=== PATIENT | male | born 1955 | race Caucasian/White ===

== ENCOUNTER → 2020-09-19 | Outpatient (CLI) | payer OTHER | LOC: LABNPT 12:27 | PROVIDERS: ATTEND Internal Medicine | DX: Z01.89 Encounter for other specified special examinations (principal) | CPT/HCPCS: 84145 ==

== ENCOUNTER 2020-09-24 23:06 | Emergency (ER) | payer MEDICARE, OTHER ==
[~2020-09-24] VITALS: Ht 162.5 cm; Wt 60.3 kg
[2020-09-24] MEDS ORDERED: LIDOCAINE 1% INJ 20 ML 20 ML VIAL ONE (23:16)
[2020-09-24] MEDS ORDERED: LIDOCAINE/EPI 2% 1:100,00 (XYLOCAINE) 20 ML VIAL ONE (23:17)
[2020-09-24] MEDS ORDERED: LIDOCAINE/EPI 2% 1:100,00 (XYLOCAINE) 20 ML VIAL INJ ONE (23:30)
[2020-09-24 23:31] LABS: BASOPHILS # (AUTO) 0.1 10^3/uL (0.0-0.1); BASOPHILS % (AUTO) 1 % (0-10); EOSINOPHILS # (AUTO) 0.4 10^3/uL (0.0-0.3); EOSINOPHILS % (AUTO) 4 % (0-10); HEMATOCRIT 48 % (40-54); HEMOGLOBIN 16.5 g/dL (13.3-17.7); LYMPHOCYTES # (AUTO) 1.6 10^3/uL (1.0-4.0); LYMPHOCYTES % (AUTO) 16 % (12-44); MEAN CORPUSCULAR HEMOGLOBIN 31 pg (25-34); MEAN CORPUSCULAR HGB CONC 35 g/dL (32-36); MEAN CORPUSCULAR VOLUME 88 fL (80-99); MONOCYTES # (AUTO) 1.3 10^3/uL (0.0-1.0); MONOCYTES % (AUTO) 13 % (0-12); NEUTROPHILS # (AUTO) 6.6 10^3/uL (1.8-7.8); NEUTROPHILS % (AUTO) 67 % (42-75); PLATELET COUNT 432 10^3/uL (130-400); WHITE BLOOD COUNT 9.9 10^3/uL (4.3-11.0)
[2020-09-24 23:35] LABS: PROTHROMBIN TIME PATIENT 13.2 SEC (12.2-14.7)
[2020-09-24 23:45] LABS: ALANINE AMINOTRANSFERASE 28 U/L (0-55); ALBUMIN 4.4 GM/DL (3.2-4.5); ALKALINE PHOSPHATASE 84 U/L (40-136); BILIRUBIN,TOTAL 0.6 MG/DL (0.1-1.0); BUN/CREATININE RATIO 13; CALCIUM 9.7 MG/DL (8.5-10.1); CARBON DIOXIDE 22 MMOL/L (21-32); CHLORIDE 102 MMOL/L (98-107); CREATINE KINASE 37 U/L (30-200); CREATININE SERUM 1.01 MG/DL (0.60-1.30); GFR ESTIMATED > 60; GLUCOSE 143 MG/DL (70-105); MAGNESIUM 1.8 MG/DL (1.6-2.4); POTASSIUM 3.6 MMOL/L (3.6-5.0); SODIUM 138 MMOL/L (135-145); TOTAL PROTEIN 7.9 GM/DL (6.4-8.2)
[2020-09-24 23:52] LABS: CREATINE KINASE MB 1.5 NG/ML (<6.6)
--- NOTE | 2020-09-25 00:01 | ED Respiratory ---
General Chief Complaint: Respiratory Problems Stated Complaint: POSS COLLAPSED LUNG / RESPRITORY DISTRESS Source: patient History of Present Illness Date Seen by Provider: Sep 24, 2020 Time Seen by Provider: 23:12 Initial Comments PT ARRIVES VIA POV FROM HOME PT C/O SEVERE SHORTNESS OF BREATH--BEGAN A COUPLE OF HOURS AGO STATES HE HAS BEEN HOSPITALIZED AT [facility] IN [place] FOR THE LAST WEEK WITH SPONTANEOUS PNEUMOTHORAX ON RIGHT HAD CHEST TUBE PULLED TODAY, AND WAS DISMISSED TONIGHT AROUND 1800. 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 HAS NOT HAD ANY PROBLEMS SINCE THEN, UNTIL A WEEK AGO. PT SMOKED 2-3 PPD, QUIT APPROXIMATELY 10 YEARS AGO DRINKS SEVERAL BEERS A DAY EVERY DAY SMOKES MARIJUANA. PCP: DR. GREGORY Allergies and Home Medications Allergies Coded Allergies: No Known Drug Allergies (Unverified , 07/27/15) Patient Home Medication List Home Medication List Reviewed: Yes Review of Systems Review of Systems Constitutional: no symptoms reported Respiratory: see HPI Cardiovascular: see HPI Gastrointestinal: no symptoms reported Past Ggfoala-Hiuoce-Kougug Hx Past Med/Social Hx: Reviewed and Corrections made Patient Social History Alcohol Use: Regular Use Drug of Choice: THC Smoking Status: Former Smoker Type Used: Cigarettes Substance type: Marijuana Past Medical History Surgeries: Yes Lobectomy, Renal Respiratory: Yes (SORL-[id number]' SYNDROME; SPONT. 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 oz. kg; BMI Method: General Appearance: severe distress, other (VERY DYSPNEIC, BENT OVER, HOLDING CHEST, ABLE TO TALK IN 1-2 WORD PHRASES) Respiratory: respiratory distress, other (DECREASED BREATH SOUNDS ON RIGHT, BUT RALES AUDIBLE ON RIGHT. LEFT LUNG RELATIVELY CLEAR. + SUB Q AIR ON RIGHT. DRESSING IN PLACE IN RIGHT LOWER LATERAL CHEST ) Cardiovascular: tachycardia Gastrointestinal: non tender, soft Neurologic/Psychiatric: no motor/sensory deficits, alert, oriented x 3 Skin: warm/dry, pallor, other (EXTENSIVE SUB Q YELLOWISH NODULES TO FACE AND NECK) Procedures/Interventions Chest Tube : Chest Tube Position: Right Upper Chest Tube Location: Anterior Chest Post Procedure CXR?: Yes Progress CHEST TUBE PLACED BY DR. FERNANDEZ--THORA-VENT PLACED IN RIGHT UPPER CHEST SEE HIS NOTES FOR DETAILS Progress/Results/Core Measures Suspected Sepsis SIRS Temperature: Pulse: Respiratory Rate: Laboratory Tests 09/24/20 23:15: White Blood Count 9.9 Blood Pressure / Mean: Laboratory Tests 09/24/20 23:15: Creatinine 1.01, INR Comment 1.0, Platelet Count 432H, Total Bilirubin 0.6 Results/Orders Lab Results Laboratory Tests Test 09/24/20 23:15 Range/Units White Blood Count 9.9 4.3-11.0 10^3/uL Red Blood Count 5.41 4.30-5.52 10^6/uL Hemoglobin 16.5 13.3-17.7 g/dL Hematocrit 48 40-54 % Mean Corpuscular Volume 88 80-99 fL Mean Corpuscular Hemoglobin 31 25-34 pg Mean Corpuscular Hemoglobin Concent 35 32-36 g/dL Red Cell Distribution Width 12.5 10.0-14.5 % Platelet Count 432 H 130-400 10^3/uL Mean Platelet Volume 10.0 9.0-12.2 fL Immature Granulocyte % (Auto) 0 % Neutrophils (%) (Auto) 67 42-75 % Lymphocytes (%) (Auto) 16 12-44 % Monocytes (%) (Auto) 13 H 0-12 % Eosinophils (%) (Auto) 4 0-10 % Basophils (%) (Auto) 1 0-10 % Neutrophils # (Auto) 6.6 1.8-7.8 10^3/uL Lymphocytes # (Auto) 1.6 1.0-4.0 10^3/uL Monocytes # (Auto) 1.3 H 0.0-1.0 10^3/uL Eosinophils # (Auto) 0.4 H 0.0-0.3 10^3/uL Basophils # (Auto) 0.1 0.0-0.1 10^3/uL Immature Granulocyte # (Auto) 0.0 0.0-0.1 10^3/uL Prothrombin Time 13.2 12.2-14.7 SEC INR Comment 1.0 0.8-1.4 Activated Partial Thromboplast Time 34 24-35 SEC Sodium Level 138 135-145 MMOL/L Potassium Level 3.6 3.6-5.0 MMOL/L Chloride Level 102 98-107 MMOL/L Carbon Dioxide Level 22 21-32 MMOL/L Anion Gap 14 5-14 MMOL/L Blood Urea Nitrogen 13 7-18 MG/DL Creatinine 1.01 0.60-1.30 MG/DL Estimat Glomerular Filtration Rate > 60 BUN/Creatinine Ratio 13 Glucose Level 143 H 70-105 MG/DL Calcium Level 9.7 8.5-10.1 MG/DL Corrected Calcium 9.4 8.5-10.1 MG/DL Magnesium Level 1.8 1.6-2.4 MG/DL Total Bilirubin 0.6 0.1-1.0 MG/DL Aspartate Amino Transf (AST/SGOT) 19 5-34 U/L Alanine Aminotransferase (ALT/SGPT) 28 0-55 U/L Alkaline Phosphatase 84 40-136 U/L Total Creatine Kinase 37 30-200 U/L Creatine Kinase MB 1.5 <6.6 NG/ML Myoglobin 44.1 10.0-92.0 NG/ML Troponin I < 0.028 <0.028 NG/ML B-Type Natriuretic Peptide 29.9 <100.0 PG/ML Total Protein 7.9 6.4-8.2 GM/DL Albumin 4.4 3.2-4.5 GM/DL Serum Alcohol < 10 <10 MG/DL My Orders Orders - JAROD AMIN DO Chest 1 View, Ap/Pa Only (09/24/20 23:15) Ed Iv/Invasive Line Start (09/24/20 23:15) Ekg Tracing (09/24/20 23:15) O2 (09/24/20 23:15) Monitor-Rhythm Ecg Trace Only (09/24/20 23:15) BNP (09/24/20 23:15) Cbc With Automated Diff (09/24/20 23:15) Comprehensive Metabolic Panel (09/24/20 23:15) Creatine Kinase (09/24/20 23:15) Creatine Kinase Mb (09/24/20 23:15) Magnesium (09/24/20 23:15) Protime With Inr (09/24/20 23:15) Partial Thromboplastin Time (09/24/20 23:15) Myoglobin Serum (09/24/20 23:15) Troponin I (09/24/20 23:15) Rt Request For Service (09/24/20 23:15) Lidocaine/Epi 2% 1:100,000 (Xylocaine/Ep (09/24/20 23:30) Lidocaine 1% Inj 20 Ml (Xylocaine 1% Inj (09/24/20 23:16) Lidocaine/Epi 2% 1:100,000 (Xylocaine/Ep (09/24/20 23:17) Alcohol (09/24/20 23:38) Chest 1 View, Ap/Pa Only (09/24/20 23:47) Chest 1 View, Ap/Pa Only (09/25/20 00:01) Medications Given in ED Current Medications Medications Dose Ordered Sig/Hilton Route Start Time Stop Time Status Last Admin Dose Admin Lidocaine/ Epinephrine 20 ml ONCE ONCE INJ 09/24/20 23:30 09/24/20 23:31 DC 09/24/20 23:36 20 ML Vital Signs/I&O 09/24/20 09/24/20 09/24/20 09/24/20 23:13 23:13 23:25 23:40 Temp 36.8 Pulse 130 Resp 40 B/P (MAP) 138/104 (115) Pulse Ox 92 95 94 95 O2 Delivery Non Rebreather OxyMask Vapotherm Vapotherm O2 Flow Rate 15.00 10.00 30.00 30.00 FiO2 80 100 09/25/20 09/25/20 00:34 01:00 Temp 36.8 Pulse 112 Resp 24 B/P (MAP) 130/80 (115) Pulse Ox 96 96 O2 Delivery Vapotherm Vapotherm O2 Flow Rate 30.00 30.00 FiO2 85 Capillary Refill : Progress Note : Progress Note INITIAL O2 SATS IN LOW 70'S--PLACED ON OXIMASK AND SATS UP TO 97%, THEN COVERTED TO VAPOTHERM, WITH CONTINUED O2 SATS IN UPPER 90'S CHEST TUBE PLACED BY DR. FERNANDEZ NO DETERIORATION IN PT'S CONDITION PT TALKING ON PHONE, WITH AT BEDSIDE PT ABLE TO TALK IN FULL SENTENCES, NO LONGER DYSPNEIC. VITALS REMAINED STABLE PULSE 105, BP 130/80, O2 SAT 98% AT TIME OF TRANSFER, PT IS NOT DYSPNEIC PT DECLINED ANY PAIN MEDICATION DURING ER STAY ECG Initial ECG Impression Date: Sep 24, 2020 Initial ECG Impression Time: 23:27 Initial ECG Rate: 121 Initial ECG Rhythm: S.Tach Initial ECG Impression: Nonspecific Changes Initial ECG Comparisson: No Previous ECG Available Diagnostic Imaging Comments CXR--LARGE RIGHT PNEUMOTHORAX, WITH TRACHEAL DEVIATION, NO MEDIASTINAL SHIFT. PENDING RADIOLOGIST REVIEW POST CHEST TUBE CXR--LESSENED PNEUMOTHORAX, PENDING RADIOLOGIST REVIEW POST CHEST TUBE CXR #2--NO SIGNIFICANT CHANGE, PENDING RADIOLOGIST REVIEW Critical Care Note Critical Care Total Time (minutes) 30 Departure Communication (Admissions) 2319--SPOKE WITH DR. FERNANDEZ, SURGEON GEOGRAPHIC INFORMATION SYSTEMS DIRECTOR. WILL BE IN TO SEE PT 2326--DR. FERNANDEZ HERE 2331--CALLING [facility] 2343--SPOKE WITH DR. ALEXANDRE, ACTIVITIES SPECIALIST, ACCEPTS PT FOR TRANSFER/DIRECT ADMIT. NO ADDITIONAL RECOMMENDATIONS AT THIS TIME LOCAL EMS UNABLE TO TRANSPORT PT AT THIS TIME, THEY ARE OUT WITH OTHER TRANSFERS. WILL SEND BY AIR 0043--[facility] HERE FOR TRANSPORT Impression Primary Impression: RECURRENT RIGHT PNEUMOTHORAX Additional Impressions: Cyak-Mtgc-Sfsn syndrome HYPOXIA DUE TO PNEUMOTHORAX Disposition: XFER SHT-TRM HOSP Condition: Improved Transfer Transfer Reason: Exceeds level of care Transfer Facility: [facility] Method of Transfer: Air Departure-Patient Inst. Referrals: ANGELES GREGORY DO (PCP/Family) Primary Care Physician JAROD AMIN DO Sep 25, 2020 00:01
--- NOTE | 2020-09-25 00:37 | Consultation - Surgery ---
History of Present Illness History of Present Illness Patient Consulted On(thi/time) 09/23/20 23:31 Date Seen by Provider: Sep 24, 2020 Time Seen by Provider: 23:31 History of Present Illness seen and evaluated in ed, call by Dr. 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 Patient had chest tube removed today and he states had serial chest x rays afterwards without issues and was discharged. States he was at home for about 3 hours and began having difficulty breathing. Patient states the cool air helped a little, but nothing else. Moving worsened along with time. Shortness of breath kept worsening so decided to come to the emergency department. Patient O2 sat was 79%. Chest x ray demonstrated right pneumothorax. No other complaints at this time. Allergies and Home Medications Allergies Coded Allergies: No Known Drug Allergies (Unverified , 07/27/15) Patient Home Medication List Home Medication List Reviewed: Yes Past Pgnovox-Ihrjzs-Sqdrln Hx Patient Social History Drug of Choice: THC Smoking Status: Former Smoker Type Used: Cigarettes Recent Hopitalizations: Yes ([facility]) Substance type: Marijuana Seasonal Allergies Seasonal Allergies: No Surgeries History of Surgeries: Yes Surgeries: Lobectomy Respiratory History of Respiratory Disorde: Yes (Angela Inga James syndrome) Cardiovascular History of Cardiac Disorders: Yes Cardiac Disorders: Hypertension Neurological History of Neurological Disord: No Genitourinary History of Genitourinary Disor: No Gastrointestinal History of Gastrointestinal Di: No Musculoskeletal History of Musculoskeletal Dis: No Endocrine History of Endocrine Disorders: No HEENT History of HEENT Disorders: No Cancer History of Cancer: Yes Cancer: Skin Psychosocial History of Psychiatric Problem: No Integumentary History of Skin or Integumenta: Yes (SKIN CANCER) Reviewed Nursing Assessment Reviewed/Agree w Nursing PMH: Yes Family Medical History Significant Family History: No Pertinent Family Hx Review of Systems-General Constitutional: No chills, No diaphoresis EENTM: No ear pain, No blurred vision Respiratory: dyspnea on exertion, short of breath Cardiovascular: No chest pain, No palpitations Gastrointestinal: No abdominal pain, No hematemesis, No nausea, No vomiting Genitourinary: No decreased output, No discharge Musculoskeletal: No back pain, No joint pain Skin: No change in color, No change in hair/nails Psychiatric/Neurological: Denies Anxiety, Denies Depressed, Denies Emotional Problems All Other Systems Reviewed Negative Unless Noted: Yes (Negative excepted noted.) Physical Exam-General Problems Physical Exam Vital Signs Vital Signs - First Documented 09/24/20 23:13 Temp 36.8 Pulse 130 Resp 40 B/P (MAP) 138/104 (115) Pulse Ox 95 O2 Delivery OxyMask O2 Flow Rate 10.00 Capillary Refill : Greater Than 3 Seconds General Appearance: mild distress, thin HEENT: PERRL/EOMI, normal ENT inspection Neck: non-tender, supple, normal inspection Respiratory: respiratory distress, other (labored breathing decreased breathing right) Cardiovascular: no edema, tachycardia Gastrointestinal: non tender, soft, no organomegaly Rectal: deferred Back: normal inspection, no CVA tenderness, other (right chest previous sites of chest tubes) Extremities: non-tender, normal inspection, no pedal edema Neurologic/Psychiatric: alert, normal mood/affect, oriented x 3 Skin: normal color, warm/dry Lymphatic: no adenopathy Data Review Labs Laboratory Tests 09/24/20 23:15: White Blood Count 9.9, Red Blood Count 5.41, Hemoglobin 16.5, Hematocrit 48, Mean Corpuscular Volume 88, Mean Corpuscular Hemoglobin 31, Mean Corpuscular Hemoglobin Concent 35, Red Cell Distribution Width 12.5, Platelet Count 432H, Mean Platelet Volume 10.0, Immature Granulocyte % (Auto) 0, Neutrophils (%) (Auto) 67, Lymphocytes (%) (Auto) 16, Monocytes (%) (Auto) 13H, Eosinophils (%) (Auto) 4, Basophils (%) (Auto) 1, Neutrophils # (Auto) 6.6, Lymphocytes # (Auto) 1.6, Monocytes # (Auto) 1.3H, Eosinophils # (Auto) 0.4H, Basophils # (Auto) 0.1, Immature Granulocyte # (Auto) 0.0, Prothrombin Time 13.2, INR Comment 1.0, Activated Partial Thromboplast Time 34, Sodium Level 138, Potassium Level 3.6, Chloride Level 102, Carbon Dioxide Level 22, Anion Gap 14, Blood Urea Nitrogen 13, Creatinine 1.01, Estimat Glomerular Filtration Rate > 60, BUN/Creatinine Ratio 13, Glucose Level 143H, Calcium Level 9.7, Corrected Calcium 9.4, Magnesium Level 1.8, Total Bilirubin 0.6, Aspartate Amino Transf (AST/SGOT) 19, Alanine Aminotransferase (ALT/SGPT) 28, Alkaline Phosphatase 84, Total Creatine Kinase 37, Creatine Kinase MB 1.5, Myoglobin 44.1, Troponin I < 0.028, B-Type Natriuretic Peptide 29.9, Total Protein 7.9, Albumin 4.4, Serum Alcohol < 10 Assessment/Plan Assessment/Plan Assessment/Plan right pneumothorax hypoxia Respiratory distress Mfbp-Goye-Sowd Syndrome Patient discussed need for chest tube. Understands risks and benefits of having Thoravent placed and wishes to proceed. Patient transfer back to [facility] for thoracic surgery, which Dr. Salinas already arranging. PROCEDURE: The right chest was prepped and draped in sterile fashion. 6 mL of 1% lidocaine c epi used to anesthesize area. RIght chest 3rd intercostal space midclavicular line. 11 blade scalpel made small incision. Thoravent trocar and catheter advance till in right chest and trocar removed. Good return on air bladder. Patient breathing improving. Hooked up to [facility]. JUSTIN FERNANDEZ DO Sep 25, 2020 00:37
[2020-09-25 01:00] VITALS: BP 130/80
--- NOTE | 2020-09-25 08:51 | Diagnostic Imaging Report ---
INDICATION: Pneumothorax. FINDINGS: There is a large right basilar pneumothorax. This may be ex vacuo. Heart size is stable. Left lung is clear. There is shift of the mediastinum to the left. IMPRESSION: Large right basilar pneumothorax, possibly an ex vacuo pneumothorax. Recommend clinical correlation. Dictated by: Dictated on workstation # [id number]
--- NOTE | 2020-09-25 08:59 | Diagnostic Imaging Report ---
INDICATION: Pneumothorax EXAM: Portable chest at 11:58 PM There continues to be a right pneumothorax. There has been interval placement of a right thoracostomy tube. No appreciable change in the volume of the right pneumothorax. IMPRESSION: There has been interval placement of a right thoracostomy tube. The volume of the right pneumothorax is not appreciably changed from the previous evening. Dictated by: Dictated on workstation # [id number]
--- NOTE | 2020-09-25 09:01 | Diagnostic Imaging Report ---
INDICATION: Chest tube placement. FINDINGS: Right thoracostomy tube remains in place. There is persistent large right basilar pneumothorax, again likely ex vacuo. Heart size is normal. Left lung is clear. IMPRESSION: Right chest tube remains in place however there has been no significant change in the large right basilar pneumothorax. This is presumably an ex vacuo pneumothorax. Recommend clinical correlation. Dictated by: Dictated on workstation # [id number]
== END 2020-09-25 01:00 | disposition short-term general hospital (02) ==
LOC: EDUNIT# 23:06 → ER 23:08
DX: R09.02 Hypoxemia (principal); J95.811 Postprocedural pneumothorax; Q87.89 Other specified congenital malformation syndromes, not elsewhere classified; I10 Essential (primary) hypertension; E78.00 Pure hypercholesterolemia, unspecified; J44.9 Chronic obstructive pulmonary disease, unspecified; Z87.01 Personal history of pneumonia (recurrent); Z87.891 Personal history of nicotine dependence; Z85.528 Personal history of other malignant neoplasm of kidney
CPT/HCPCS: 32551; 71045 ×2; 80053; 82550; 82553; 83735; 83874; 83880; 84484; 85025; 85610; 85730; 93005; 93041; 99291; G0480; 36415; 80320